=== PATIENT | female | born 1970 | race African-American/Black ===

== ENCOUNTER 2017-08-25 08:54 | Emergency (ER) | payer SELFPAY ==
[~2017-08-25] VITALS: Ht 180.3 cm; Wt 150.0 kg
[~2017-08-25 08:54] MED LIST: PROGESTERONE
[2017-08-25] MEDS ORDERED: CEFTRIAXONE SODIUM 1 G/VIAL IM ONE (10:30)
[2017-08-25] MEDS ORDERED: IBUPROFEN 600MG TABLET PO ONE (10:30)
[2017-08-25] MEDS ORDERED: LIDOCAINE HCL 1% 20ML VIAL (Pyxis) INJ INFIL ONE (10:30)
[2017-08-25 11:02] VITALS: BP 118/82
== END 2017-08-25 11:22 | disposition home or self-care (01) ==
LOC: ER 09:17
DX: H60.91 Unspecified otitis externa, right ear (principal); H60.10 Cellulitis of external ear, unspecified ear; I10 Essential (primary) hypertension; Z88.0 Allergy status to penicillin
CPT/HCPCS: 96372; 99283; J0696

== ENCOUNTER 2021-10-30 12:21 | Emergency (ER) | payer OTHER ==
[~2021-10-30] VITALS: Ht 180.3 cm; Wt 141.6 kg
[2021-10-30 13:22] VITALS: BP 144/80
[2021-10-30] MEDS ORDERED: ACETAMINOPHEN 325MG TABLET PO ONE (13:30)
[2021-10-30 15:20] LABS: BASOPHILS % 0.5 % (0.0-2.0); HEMATOCRIT. 34.4 % (36.0-48.0); HEMOGLOBIN. 11.8 g/dL (12.0-16.0); LYMPHOCYTES % 35.3 % (20.0-50.0); MEAN CORPUSCULAR HEMOGLOBIN 29.6 pg (28.0-32.0); MEAN CORPUSCULAR VOLUME 86.1 fL (81.0-99.0); MEAN PLATELET VOLUME 8.3 fl (7.4-10.4); NEUTROPHILS % 50.2 % (40.0-76.0); PLATELET 187 x1000/uL (130-400); RED BLOOD CELL COUNT 3.99 mill/uL (4.2-5.4); RED CELL DISTRIBUTION WIDTH 13.6 % (11.6-14.6)
[2021-10-30 15:24] LABS: CHLORIDE 106 mEq/L (98-107)
[2021-10-30] MEDS ORDERED: POTASSIUM CHLORIDE 20MEQ TABLET SR PO ONE (16:00)
[2021-10-30] MEDS ORDERED: TAM75 MT (16:28)
== END 2021-10-30 16:59 | disposition home or self-care (01) ==
LOC: ER 12:21
DX: J11.1 Influenza due to unidentified influenza virus with other respiratory manifestations (principal); E11.9 Type 2 diabetes mellitus without complications; I10 Essential (primary) hypertension; Z20.822 Contact with and (suspected) exposure to COVID-19; Z98.890 Other specified postprocedural states; Z88.0 Allergy status to penicillin
CPT/HCPCS: 36415; 71045; 80048; 82962; 85025; 87426; 87804; 99284

== ENCOUNTER 2024-04-07 12:30 | Emergency (ER) | payer MEDICAID, OTHER ==
[~2024-04-07] VITALS: Ht 180.3 cm; Wt 138.0 kg
[~2024-04-07 12:30] MED LIST changes: +TAM75 MT
[2024-04-07 12:44] VITALS: O2SAT 98
[2024-04-07 13:12] LABS: BASOPHILS % 0.4 % (0.0-2.0); EOSINOPHILS % 1.6 % (0.0-5.0); HEMATOCRIT. 38.5 % (36.0-48.0); HEMOGLOBIN. 12.7 g/dL (12.0-16.0); LYMPHOCYTES % 34.7 % (20.0-50.0); MEAN CORPUSCULAR HEMOGLOBIN 29.7 pg (28.0-32.0); MEAN CORPUSCULAR HGB CONC 32.9 g/dL (31.0-37.0); MONOCYTES % 6.8 % (2.0-8.0); NEUTROPHILS % 56.5 % (40.0-76.0); PLATELET 270 x1000/uL (130-400); RED BLOOD CELL COUNT 4.27 mill/uL (4.2-5.4); RED CELL DISTRIBUTION WIDTH 13.5 % (11.6-14.6); WHITE BLOOD COUNT 6.5 x1000/uL (4.5-11.0)
[2024-04-07 13:15] LABS: CARBON DIOXIDE 28 mEq/L (21-32); CHLORIDE 104 mEq/L (98-107); POTASSIUM 3.7 mEq/L (3.5-5.1); SODIUM 140 mEq/L (136-145)
[2024-04-07 13:20] LABS: CREATININE 0.9 mg/dL (0.6-1.0); GLUCOSE 119 mg/dL (70-105)
[2024-04-07 13:21] LABS: UREA NITROGEN BLOOD 9 mg/dL (9-23)
[2024-04-07 13:22] LABS: ALANINE AMINOTRANSFERASE 23 IU/L (10-49); ALBUMIN 4.9 g/dL (3.2-4.8); ASPARTATE AMINOTRANSFERASE 22 IU/L (<34)
[2024-04-07 13:23] LABS: BILIRUBIN DIRECT 0.2 mg/dL (<=3.0); BILIRUBIN TOTAL 0.7 mg/dL (0.1-1.0)
[2024-04-07] MEDS ORDERED: ONDANSETRON 4MG ODT PO ONE (14:00)
[2024-04-07] MEDS ORDERED: ACETAMINOPHEN 325MG TABLET PO ONE (14:00)
[2024-04-07] MEDS ORDERED: KETOROLAC 30MG/ML VIAL IM ONE (14:00)
[2024-04-07 14:15] LABS: CLARITY URINE CLOUDY (CLEAR); COLOR URINE YELLOW (YELLOW); GLUCOSE URINE NEGATIVE (NEGATIVE); KETONES URINE NEGATIVE (NEGATIVE); LEUKOCYTE ESTERASE URINE 3+ (NEGATIVE); NITRITE URINE NEGATIVE (NEGATIVE); OCCULT BLOOD URINE 1+ (NEGATIVE); PROTEIN URINE 1+ (NEGATIVE); SPECIFIC GRAVITY URINE 1.018 (1.005-1.030)
[2024-04-07 14:39] LABS: BACTERIA URINE 1+; SQUAMOUS EPITHELIAL CELL URINE 1+ /lpf (RARE/1+); WBC URINE TNTC /hpf (0-2); YEAST URINE NONE SEEN
[2024-04-07] MEDS ORDERED: SULF1TAB48 MT (16:35)
[2024-04-07] MEDS: ONDANSETRON 4MG ODT PO NR (17:30)
[2024-04-07] MEDS: KETOROLAC 30MG/ML VIAL IM NR (17:30)
[2024-04-07] MEDS: ACETAMINOPHEN 325MG TABLET PO NR (17:30)
[2024-04-07 17:50] VITALS: BP 129/75; PULSE 83; RESP 17; TEMP 36.66960; O2SAT 99
[2024-04-07 19:03] LABS: HCG SCREEN NEGATIVE
== END 2024-04-07 18:00 | disposition home or self-care (01) ==
LOC: ER 12:30
DX: N12 Tubulo-interstitial nephritis, not specified as acute or chronic (principal); I10 Essential (primary) hypertension; E11.9 Type 2 diabetes mellitus without complications; Z88.0 Allergy status to penicillin; Z98.890 Other specified postprocedural states
CPT/HCPCS: 99285; 74176; 80076; 80048; 81003; 84703; 83690; 85025; 86850; 86900; 86901; 36415; 93005; 96372; Q0162; J1885

== ENCOUNTER 2024-05-18 20:06 | Emergency (ER) | payer OTHER ==
[~2024-05-18] VITALS: Ht 180.3 cm; Wt 138.4 kg
[~2024-05-18 20:06] MED LIST changes: +SULF1TAB48 MT
[2024-05-18 21:07] VITALS: O2SAT 99
[2024-05-18] MEDS ORDERED: OFLO5DRO4 RIGHT EAR (21:55)
[2024-05-18 22:25] VITALS: BP 159/89; PULSE 79; RESP 18; TEMP 36.66960; O2SAT 99
== END 2024-05-19 02:05 | disposition home or self-care (01) ==
LOC: ER 20:06
DX: H60.91 Unspecified otitis externa, right ear (principal); H92.01 Otalgia, right ear; J45.909 Unspecified asthma, uncomplicated; I10 Essential (primary) hypertension; E11.9 Type 2 diabetes mellitus without complications; Z88.0 Allergy status to penicillin; Z90.49 Acquired absence of other specified parts of digestive tract
CPT/HCPCS: 99283